=== PATIENT | female | born 1945 | race African-American/Black ===

== ENCOUNTER 2020-12-31 14:17 | Emergency (ER) | payer OTHER ==
[~2020-12-31] VITALS: Ht 170.2 cm; Wt 113.0 kg
[2020-12-31] MEDS ORDERED: POLYVINYL ALCOHOL OPHTH DROPS 15ML BOTHEYE STA (15:29)
[2020-12-31] MEDS ORDERED: LIDOCAINE 5% PATCH TOP STA (15:29)
[2020-12-31] MEDS ORDERED: KETOROLAC 30MG/ML VIAL IV ONE (15:45)
[2020-12-31] MEDS ORDERED: ACYCLOVIR 400 MG TABLET PO ONE (15:45)
[2020-12-31] MEDS ORDERED: LIDO1ADH71 * (16:26)
[2020-12-31] MEDS ORDERED: PEG15DRO5 EACHEYE (16:26)
[2020-12-31] MEDS ORDERED: ACYC200C31 PO (16:26)
[2020-12-31 17:36] VITALS: BP 194/89
[2021-01-16] MEDS ORDERED: lisinopril (14:22)
[2021-01-16] MEDS ORDERED: labetolol (14:28)
[2021-01-16] MEDS ORDERED: lipitor (14:28)
[2021-01-16] MEDS ORDERED: clonidine (14:28)
[2021-01-16] MEDS ORDERED: hydralazine (14:28)
[2021-01-16] MEDS ORDERED: aspirin (14:29)
[2021-01-16] MEDS ORDERED: HYDR25TA PO (22:49)
[2021-01-16] MEDS ORDERED: HYDR100T31 PO (22:49)
[2021-01-16] MEDS ORDERED: CLON1PAT11 TP (22:49)
[2021-01-16] MEDS ORDERED: AMLO10TA80 PO (22:49)
[2021-01-18] MEDS ORDERED: AZIT500T2 PO (10:33)
== END 2020-12-31 17:48 | disposition home or self-care (01) ==
LOC: ER 14:27
DX: B02.9 Zoster without complications (principal); E11.9 Type 2 diabetes mellitus without complications; I10 Essential (primary) hypertension; H54.7 Unspecified visual loss; Z90.49 Acquired absence of other specified parts of digestive tract
CPT/HCPCS: 96374; 99284; J1885

== ENCOUNTER 2021-09-15 13:15 | Inpatient (IN) | payer OTHER ==
[~2021-09-15] VITALS: Ht 172.7 cm; Wt 89.4 kg
[2021-09-15] VITALS (12 sets, daily range): BP systolic 122–159; BP diastolic 62–83
[~2021-09-15 13:15] MED LIST: ACYC200C31 PO; AMLO10TA80 PO; AZIT500T2 PO; CLON1PAT11 TP; HYDR100T31 PO; HYDR25TA PO; LIDO1ADH71 *; PEG15DRO14 EACHEYE; aspirin; clonidine; hydralazine; labetolol; lipitor
[2021-09-15] MEDS ORDERED: MORPHINE SULFATE 4 MG/ML CPJ (NOT FOR IM USE) IV STA ×2 (13:38→15:16)
[2021-09-15] MEDS ORDERED: ONDANSETRON HCL 4MG/2ML INJ IV STA ×2 (13:38→15:16)
[2021-09-15] MEDS ORDERED: FLUORESCEIN SODIUM 1MG/STRIP RIGHTEYE ONE (13:45)
[2021-09-15] MEDS ORDERED: TETRACAINE 0.5% OPHTH DROPS 4ML RIGHTEYE ONE (13:45)
[2021-09-15] MEDS ORDERED: HYDRALAZINE 20MG/ML VIAL IV ONE ×2 (13:45→16:15)
[2021-09-15] MEDS ORDERED: SODIUM CHLORIDE 0.9% 1,000 ML IV ONE (13:45)
[2021-09-15 14:37] LABS: BASOPHILS % 0.4 % (0.0-2.0); EOSINOPHILS % 0.9 % (0.0-5.0); HEMATOCRIT. 33.9 % (36.0-48.0); HEMOGLOBIN. 11.3 g/dL (12.0-16.0); MEAN CORPUSCULAR HEMOGLOBIN 30.3 pg (28.0-32.0); MEAN CORPUSCULAR VOLUME 90.8 fL (81.0-99.0); MEAN PLATELET VOLUME 7.8 fl (7.4-10.4); MONOCYTES % 12.1 % (2.0-8.0); NEUTROPHILS % 69.6 % (40.0-76.0); PLATELET 339 x1000/uL (130-400); RED BLOOD CELL COUNT 3.74 mill/uL (4.2-5.4); RED CELL DISTRIBUTION WIDTH 14.5 % (11.6-14.6)
[2021-09-15 14:45] LABS: CHLORIDE 99 mEq/L (98-107)
[2021-09-15 15:16] LABS: PARTIAL THROMBOPLASTIN TIME 26.2 sec (23.4-31.0); PROTHROMBIN TIME 10.9 sec (9.6-11.0)
[2021-09-15] MEDS ORDERED: IOHEXOL-350 100 ML BOTTLE ONE (17:04)
[2021-09-15] MEDS ORDERED: NITROGLYCERIN 50MG PREMIX 250 ML IV ONE (17:15)
[2021-09-15] MEDS ORDERED: NITROGLYCERIN 50MG PREMIX 250 ML IV NR (17:15)
[2021-09-15] MEDS ORDERED: PANTOPRAZOLE SODIUM 40 MG/VIAL IV SCH (18:45)
[2021-09-15] MEDS ORDERED: HYDRALAZINE HCL 100MG TABLET PO SCH (18:45)
[2021-09-15] MEDS ORDERED: CLONIDINE 0.1MG TABLET PO PRN (18:45)
[2021-09-15] MEDS ORDERED: ONDANSETRON HCL 4MG/2ML INJ IV PRN (18:45)
[2021-09-15] MEDS ORDERED: ACETAMINOPHEN 325MG TABLET PO PRN (18:45)
[2021-09-15] MEDS ORDERED: NALOXONE HCL 0.4MG/ML VIAL IV PRN (19:00)
[2021-09-15] MEDS: AMLODIPINE 10MG TABLET PO SCH (19:08)
[2021-09-15] MEDS: MORPHINE SULFATE 2 MG/ML CPJ (NOT FOR IM USE) IV PRN (19:08)
[2021-09-15] MEDS: HYDRALAZINE HCL 100MG TABLET PO SCH ×2 (22:00→22:51)
[2021-09-15 22:37] LABS: CREATINE KINASE 109 IU/L (26-192); CREATINE KINASE MB FRACTION < 1.0 ng/mL (0.5-3.6)
[2021-09-15] MEDS: SODIUM CHLORIDE 0.9% 1,000 ML IV SCH (22:38)
[2021-09-15] MEDS: PANTOPRAZOLE SODIUM 40 MG/VIAL IV SCH (22:38)
[2021-09-15] MEDS ORDERED: HYPROMELLOSE EACHEYE PRN (22:45)
[2021-09-15] MEDS ORDERED: [UNRECOGNIZED DRUG - OTHER] EACHEYE PRN (22:45)
[2021-09-15] MEDS ORDERED: PEG EACHEYE PRN (22:45)
[2021-09-15] MEDS ORDERED: GLYCERIN EACHEYE PRN (22:45)
[2021-09-15] MEDS: NITROGLYCERIN 50MG PREMIX 250 ML IV PRN (22:47)
[2021-09-15] MEDS ORDERED: POLYVINYL ALCOHOL OPHTH DROPS 15ML EACHEYE PRN (23:30)
[2021-09-16] VITALS (90 sets, daily range): BP systolic 97–171; BP diastolic 41–80
[2021-09-16] MEDS: NITROGLYCERIN 50MG PREMIX 250 ML IV PRN (03:53)
[2021-09-16] MEDS: MORPHINE SULFATE 2 MG/ML CPJ (NOT FOR IM USE) IV PRN ×2 (06:37→20:35)
[2021-09-16 07:11] LABS: BASOPHILS % 0.4 % (0.0-2.0); EOSINOPHILS % 0.8 % (0.0-5.0); HEMATOCRIT. 31.8 % (36.0-48.0); HEMOGLOBIN. 10.7 g/dL (12.0-16.0); LYMPHOCYTES % 13.8 % (20.0-50.0); MEAN CORPUSCULAR HEMOGLOBIN 30.5 pg (28.0-32.0); MEAN PLATELET VOLUME 7.6 fl (7.4-10.4); MONOCYTES % 14.5 % (2.0-8.0); NEUTROPHILS % 70.5 % (40.0-76.0); PLATELET 348 x1000/uL (130-400); RED BLOOD CELL COUNT 3.49 mill/uL (4.2-5.4); RED CELL DISTRIBUTION WIDTH 14.4 % (11.6-14.6)
[2021-09-16 07:25] LABS: CHLORIDE 102 mEq/L (98-107)
[2021-09-16 07:35] LABS: CREATINE KINASE 80 IU/L (26-192); CREATINE KINASE MB FRACTION < 1.0 ng/mL (0.5-3.6)
[2021-09-16] MEDS: AMLODIPINE 10MG TABLET PO SCH (09:00)
[2021-09-16] MEDS: LABETALOL HCL 100MG TABLET PO SCH ×2 (09:00→20:34)
[2021-09-16] MEDS: HYDROCHLOROTHIAZIDE 25MG TABLET PO SCH (09:00)
[2021-09-16] MEDS ORDERED: CLONIDINE HCL 0.2MG/24HR PATCH TD SCH (09:00)
[2021-09-16] MEDS: HYDRALAZINE HCL 100MG TABLET PO SCH ×3 (09:00→17:26)
[2021-09-16] MEDS: PANTOPRAZOLE SODIUM 40 MG/VIAL IV SCH (10:27)
[2021-09-16] MEDS: ASPIRIN 81MG TABLET PO SCH (10:27)
[2021-09-16] MEDS: HEPARIN 5000 UNITS/ML VIAL SUBCUT SCH ×2 (10:28→20:35)
[2021-09-16] MEDS: SODIUM CHLORIDE 0.9% 1,000 ML IV SCH (11:26)
[2021-09-16] MEDS: ATORVASTATIN CALCIUM 40MG TABLET PO SCH (20:34)
[2021-09-17] VITALS (16 sets, daily range): BP systolic 105–157; BP diastolic 51–73
[2021-09-17] MEDS: SODIUM CHLORIDE 0.9% 1,000 ML IV SCH ×2 (04:07→20:33)
[2021-09-17 06:13] LABS: BASOPHILS % 0.3 % (0.0-2.0); EOSINOPHILS % 1.8 % (0.0-5.0); HEMATOCRIT. 31.2 % (36.0-48.0); HEMOGLOBIN. 10.1 g/dL (12.0-16.0); LYMPHOCYTES % 17.2 % (20.0-50.0); MEAN CORPUSCULAR HEMOGLOBIN 29.8 pg (28.0-32.0); MEAN CORPUSCULAR VOLUME 92.3 fL (81.0-99.0); MEAN PLATELET VOLUME 7.2 fl (7.4-10.4); MONOCYTES % 11.6 % (2.0-8.0); NEUTROPHILS % 69.1 % (40.0-76.0); PLATELET 342 x1000/uL (130-400); RED BLOOD CELL COUNT 3.38 mill/uL (4.2-5.4); RED CELL DISTRIBUTION WIDTH 14.5 % (11.6-14.6)
[2021-09-17] MEDS: ASPIRIN 81MG TABLET PO SCH (08:49)
[2021-09-17] MEDS: HYDROCHLOROTHIAZIDE 25MG TABLET PO SCH (08:49)
[2021-09-17] MEDS: AMLODIPINE 10MG TABLET PO SCH (08:49)
[2021-09-17] MEDS: HYDRALAZINE HCL 100MG TABLET PO SCH ×3 (08:49→17:27)
[2021-09-17] MEDS: PANTOPRAZOLE SODIUM 40 MG/VIAL IV SCH (08:50)
[2021-09-17] MEDS: HEPARIN 5000 UNITS/ML VIAL SUBCUT SCH ×2 (08:50→20:35)
[2021-09-17] MEDS ORDERED: CLONIDINE HCL 0.2MG/24HR PATCH TD SCH (09:00)
[2021-09-17] MEDS: LABETALOL HCL 100MG TABLET PO SCH ×2 (12:32→20:34)
[2021-09-17] MEDS: ATORVASTATIN CALCIUM 40MG TABLET PO SCH (20:34)
[2021-09-17] MEDS: MORPHINE SULFATE 2 MG/ML CPJ (NOT FOR IM USE) IV PRN (20:36)
[2021-09-18] VITALS (7 sets, daily range): BP systolic 131–157; BP diastolic 62–73
[2021-09-18 07:02] LABS: BASOPHILS % 0.3 % (0.0-2.0); EOSINOPHILS % 1.6 % (0.0-5.0); HEMOGLOBIN. 10.1 g/dL (12.0-16.0); MEAN CORPUSCULAR HEMOGLOBIN 30.9 pg (28.0-32.0); MEAN CORPUSCULAR VOLUME 91.5 fL (81.0-99.0); MEAN PLATELET VOLUME 7.6 fl (7.4-10.4); MONOCYTES % 10.6 % (2.0-8.0); NEUTROPHILS % 71.5 % (40.0-76.0); PLATELET 317 x1000/uL (130-400); RED BLOOD CELL COUNT 3.28 mill/uL (4.2-5.4); RED CELL DISTRIBUTION WIDTH 14.1 % (11.6-14.6)
[2021-09-18] MEDS: PANTOPRAZOLE SODIUM 40 MG/VIAL IV SCH (09:20)
[2021-09-18] MEDS: AMLODIPINE 10MG TABLET PO SCH (09:21)
[2021-09-18] MEDS: LABETALOL HCL 100MG TABLET PO SCH (09:22)
[2021-09-18] MEDS: HYDRALAZINE HCL 100MG TABLET PO SCH ×3 (09:22→17:25)
[2021-09-18] MEDS: HYDROCHLOROTHIAZIDE 25MG TABLET PO SCH (09:23)
[2021-09-18] MEDS: HEPARIN 5000 UNITS/ML VIAL SUBCUT SCH (09:24)
[2021-09-18] MEDS: ASPIRIN 81MG TABLET PO SCH (09:26)
[2021-09-18] MEDS: SODIUM CHLORIDE 0.9% 1,000 ML IV SCH (12:47)
[2021-09-18] MEDS ORDERED: HYDROCODONE/ACETAMINOPHEN 5/325MG TABLET PO PRN (14:15)
[2021-09-18] MEDS ORDERED: PREDNISOLONE ACETATE 1% OPHTH DROPS 5ML RIGHTEYE SCH (18:00)
== END 2021-09-18 18:40 | disposition home or self-care (01) | DRG 305 ==
LOC: ER 13:22 → CVICU 17:10 → ENRESERV 18:54 → 7WST 09-17 06:11
PROVIDERS: ADMIT Internal Medicine; ATTEND Internal Medicine
DX: I16.0 Hypertensive urgency (principal); N17.9 Acute kidney failure, unspecified; H20.9 Unspecified iridocyclitis; E66.01 Morbid (severe) obesity due to excess calories; H54.8 Legal blindness, as defined in USA; E78.5 Hyperlipidemia, unspecified; M19.90 Unspecified osteoarthritis, unspecified site; E78.00 Pure hypercholesterolemia, unspecified; I10 Essential (primary) hypertension; Q12.1 Congenital displaced lens; Z79.899 Other long term (current) drug therapy; Z90.49 Acquired absence of other specified parts of digestive tract; Z68.30 Body mass index [BMI] 30.0-30.9, adult
CPT/HCPCS: 36415; 70486; 70496; 71045; 80048; 80053; 82550; 82553; 83880; 84484; 85025; 93005; 93306; 93970; 95816; 97116; 97161; 97162; 99291; C9113; J0360; J1644; J2270; J2405; J3490; J7030; Q9967

== ENCOUNTER 2022-02-04 18:02 | Emergency (ER) | payer MEDICARE, OTHER ==
[~2022-02-04] VITALS: Ht 170.2 cm; Wt 100.0 kg
[2022-02-04] MEDS ORDERED: MORPHINE SULFATE 4 MG/ML CPJ (NOT FOR IM USE) IV ONE (18:45)
[2022-02-04 20:32] VITALS: BP 236/103
[2022-02-04] MEDS ORDERED: HYDRALAZINE 20MG/ML VIAL IV ONE (21:15)
== END 2022-02-04 22:00 | disposition home or self-care (01) ==
LOC: ER 18:02
DX: S16.1XXA Strain of muscle, fascia and tendon at neck level, initial encounter (principal); V49.59XA Passenger injured in collision with other motor vehicles in traffic accident, initial encounter; Y93.89 Activity, other specified; Y92.89 Other specified places as the place of occurrence of the external cause; Y99.8 Other external cause status; E78.00 Pure hypercholesterolemia, unspecified; I10 Essential (primary) hypertension; Z98.51 Tubal ligation status; Z90.49 Acquired absence of other specified parts of digestive tract; Z79.899 Other long term (current) drug therapy
CPT/HCPCS: 70450; 71045; 72125; 72131; 93005; 96374; 96375; 99284; J0360; J2270